=== PATIENT | female | born 1960 | race Two or more races ===

== ENCOUNTER 2017-04-13 09:27 | Day surgery (SDC) | payer OTHER ==
[2017-04-09 08:39] VITALS: BMI 26.1
[~2017-04-13 09:27] MED LIST: DEXAMETHASONE SOD PHOSPHATE 10 MG/ML 1 ML VIAL IV ONE; HYDROmorphone 1 MG/ML 1 ML SYRINGE IVP PRN; LACTATED RINGERS 1,000 ML IV SCH; Pre Op ABX Message 1 EACH MISC MISCELLANE ONE
[2017-04-13] MEDS: ONDANSETRON 4 MG/2 ML VIAL IVP ONE ×2 (10:29→12:10)
[2017-04-13] MEDS ORDERED: LIDOCAINE 1% 20 ML VIAL (10MG/ML) FOR IV START INTRADERMA ONE (10:29)
[2017-04-13] MEDS ORDERED: diphenhydrAMINE 50 MG/ML 1 ML VIAL ONE (11:02)
[2017-04-13] MEDS ORDERED: KETAMINE 10 MG/ML 20 ML VIAL ONE (11:02)
[2017-04-13] MEDS ORDERED: MIDAZOLAM 2 MG/2 ML VIAL ONE (11:02)
[2017-04-13] MEDS ORDERED: PROPOFOL 10 MG/ML 20 ML VIAL IV ONE (11:02)
[2017-04-13] MEDS ORDERED: fentaNYL (PF) 50 MCG/ML 2 ML AMP ONE (11:02)
[2017-04-13] MEDS ORDERED: BUPIVACAINE (PF) 0.25% 30 ML VIAL SQ ONE ×2 (11:13)
[2017-04-13 12:05] VITALS: TEMP 98.1
--- NOTE | 2017-04-13 12:07 | P.OP ---
Date of Procedure: 04/13/17 Preoperative Diagnosis: Right breast mass Postoperative Diagnosis: Right breast mass Procedure(s) Performed: Right breast lumpectomy. Implants: Anesthesia: MAC Surgeon: Po Jean Estimated Blood Loss (ml): 10 Pathology: other (Right breast mass) Condition: stable Disposition: PACU Indications for Procedure: The patient is a 56-year-old white female who of the mass in the medial aspect of the right breast several weeks ago. Mammogram and ultrasound showed suspicious mass 2 o'clock position right breast about 2.1 cm maximum diameter. She declined mammogram. Breast cancer in her mother. Core biopsy Revealed no evidence of malignancy. However excisional biopsy was recommended to rule out for sure to to have no other treatment if this proved to be malignant locally and is planning on alternative treatment out of town. Operative Findings: Vague mass right breast around the 2 o'clock position about 2 cm in diameter. Description of Procedure: With the patient supine the right breast and chest wall were prepped with Betadine and draped local anesthetic Marcaine 0.5% plain was infiltrated into the skin overlying the mass transverse incision was made. Upper and lower skin and subcutaneous flaps were created. Wide excision of the mass was then accomplished using the electrocautery down to the underlying and including the fascia of the pectoral muscles. The margins were marked in the usual fashion. The wound was irrigated. Hemostasis was good and the field was dry. Clips were placed in 4 quadrants. Closure was achieved with interrupted 4-0 Vicryl for the subcutaneous tissues and 4-0 Monocryl and Steri-Strips for the skin pressure dressing was applied. All counts were correct. Blood loss was negligible less than 10 mls. The patient was transported to the recovery room in good and stable condition
[2017-04-13] MEDS ORDERED: traMADol 50 MG TAB PO ONE (13:50)
[2017-04-13 14:05] VITALS: BP 121/71; PULSE 55; RESP 16
== END 2017-04-13 14:27 | disposition home or self-care (01) ==
LOC: OR 09:27
PROVIDERS: ATTEND Surgery
DX: C50.411 Malignant neoplasm of upper-outer quadrant of right female breast (principal); E07.9 Disorder of thyroid, unspecified; Z79.899 Other long term (current) drug therapy
CPT/HCPCS: 19120; 88342; 88307; 88341; J2250; J1200; J1100; J2405; J3010; J1170; J2704

== ENCOUNTER → 2017-08-20 | Outpatient (CLI) | payer OTHER ==
--- NOTE | 2017-08-20 13:23 | CT ---
EXAMINATION TYPE: CT abdomen pelvis w con DATE OF EXAM: 08/20/2017 HISTORY: Newly diagnosed breast cancer, prechemotherapy exam. CT DLP: 933mGycm Automated Exposure Control for Dose Reduction was Utilized. CONTRAST: CT scan of the abdomen and pelvis is performed with IV Contrast, patient injected with 100 mL of Omni paque 300. COMPARISON: None. FINDINGS: LUNG BASES: Dependent atelectasis is present in both bases. There is additional linear scarring and/o r atelectasis centrally in the bilateral bases. LIVER/GB: There is nonspecific 6 mm lesion left hepatic dome lateral segment on axial image 9 too sma ll to further characterize but presumed benign. PANCREAS: No significant abnormality is seen. SPLEEN: No significant abnormality is seen. ADRENALS: No significant abnormality is seen. KIDNEYS: No significant abnormality is seen. BOWEL: Oral contrast reaches level of hepatic flexure. Evaluation of distal colon is felt suboptimal. In addition patient has very little abdominal fat making evaluation suboptimal. There is no suspicio us small or large bowel dilatation. Poorly distended stomach is seen. There is prominence of fecal ma terial throughout the colon particularly transverse and left colon. There is gas filled distention of rectum. UTERUS/ADNEXA: Heterogeneous calcified fibroid uterus is present. There are tubal ligation clips ollie g the superior periphery of the uterus. Some scattered pelvic phleboliths are present inferiorly. LYMPH NODES: No greater than 1cm abdominal or pelvic lymph nodes are appreciated. OSSEOUS STRUCTURES: There is disc space narrowing with vacuum disc phenomenon at lumbosacral junction . There is mild to moderate bilateral disc space narrowing and mild spurring in both hips. OTHER: No significant additional abnormality is seen. IMPRESSION: No suspicious mass or adenopathy is seen to suggest metastatic malignancy.
--- NOTE | 2017-08-20 14:10 | NM ---
EXAMINATION TYPE: NM bone scan whole body DATE OF EXAM: 08/20/2017 COMPARISON: 08/20/2017 CT scan HISTORY: Breast cancer Delayed whole-body scanning was performed following the injection of 25.8 mCi Tc 99m MDP. Images acq uired 3 hours post injection. FINDINGS: There is abnormal uptake involving the lower rib cage anteriorly on the right and left. Abnormal upta ke involving the posterior mid level ribs bilaterally. Abnormal uptake involving the knees, feet, and shoulders is typical of arthritic changes. Abnormal up take involving the mandible likely related to periodontal disease. Abnormal uptake involving the thoracic and lumbar spine appears to be mild intensity likely degenerat fredy. IMPRESSION: 1. Uptake involving the rib cage is nonspecific, dedicated x-ray series recommended. 2. Abnormal uptake involving the vertebral column is likely degenerative given the low intensity of u ptake.
--- NOTE | 2017-08-20 16:20 | ECHOF ---
Referral Reason:C50.2111 Breast ca Z08.818 pre chemo MEASUREMENTS -------- HEIGHT: 162.6 cm WEIGHT: 61.2 kg BP: RVIDd: 2.9 cm (< 3.3) IVSd: 1.1 cm (0.6 - 1.1) LVIDd: 4.3 cm (3.9 - 5.3) LVPWd: 1.0 cm (0.6 - 1.1) IVSs: 1.2 cm LVIDs: 2.6 cm LVPWs: 1.5 cm LAESV Index (A-L): 19.99 ml/m Ao Diam: 3.1 cm (2.0 - 3.7) AV Cusp: 1.6 cm (1.5 - 2.6) LA Diam: 3.7 cm (2.7 - 3.8) MV EXCURSION: 21.475 mm (> 18.000) MV EF SLOPE: 113 mm/s (70 - 150) EPSS: 0.3 cm MV E Juan M: 0.64 m/s MV DecT: 298 ms MV A Juan M: 0.80 m/s MV E/A Ratio: 0.80 RAP: 5.00 mmHg RVSP: 22.76 mmHg FINDINGS -------- Sinus rhythm. This was a technically good study. The left ventricular size is normal. Left ventricular wall thickness is normal. Overall left ventricular systolic function is normal with, an EF between 55 - 60 %. The right ventricle is normal in size and function. Normal LA size by volume 22+/-6 ml/m2. The right atrium is normal in size. The aortic valve is trileaflet, and appears structurally normal. No aortic stenosis or regurgitation. The mitral valve leaflets are mildly thickened. There is trace to mild mitral regurgitation. There is mildly calcified chordae. Trace tricuspid regurgitation present. Right ventricular systolic pressure is normal at < 35 mmHg. There is no evidence of pulmonary hypertension. The pulmonic valve is normal. The aortic root size is normal. Normal inferior vena cava with normal inspiratory collapse consistent with estimated right atrial pressure of 5 mmHg. The pericardium is normal. There is no pericardial effusion. Echolucent area of unclear significance - suggest CXR or CT chest CONCLUSIONS -------- 1. Sinus rhythm. 2. Trace tricuspid regurgitation present. 3. Right ventricular systolic pressure is normal at < 35 mmHg. 4. There is no evidence of pulmonary hypertension. 5. The aortic root size is normal. 6. There is no pericardial effusion. 7. This was a technically good study. 8. The left ventricular size is normal. 9. Overall left ventricular systolic function is normal with, an EF between 55 - 60 %. 10. Normal LA size by volume 22+/-6 ml/m2. 11. The aortic valve is trileaflet, and appears structurally normal. No aortic stenosis or regurgitation. 12. The mitral valve leaflets are mildly thickened. 13. There is trace to mild mitral regurgitation. 14. There is mildly calcified chordae. TOBACCO CLOTH RECLAIMER: Mauricio Cook RDCS
== END ==
LOC: RADNMMAIN 10:03
PROVIDERS: ATTEND Internal Medicine Hematology & Oncology
DX: C50.211 Malignant neoplasm of upper-inner quadrant of right female breast (principal); R93.8 Abnormal findings on diagnostic imaging of other specified body structures; I08.1 Rheumatic disorders of both mitral and tricuspid valves
CPT/HCPCS: 93306; 74177; 78306; A9503; Q9967

== ENCOUNTER → 2017-08-24 | Outpatient (CLI) | payer OTHER ==
--- NOTE | 2017-08-24 14:52 | USB ---
Reason for exam: additional evaluation requested from prior study. History: Patient has history of breast cancer at age 56. Family history of breast cancer in mother at age 69. Physical Findings: Nurse did not find any significant physical abnormalities on exam. US Breast LT Left breast ultrasound includes all four quadrants, the retroareolar region and axilla. Finding demonstrates a 3 x 2 x 3mm oval, cystic lesion at 6 o'clock, a 7 x 4 x 9mm oval, solid, hyperechoic lesion at 10 o'clock questionable lipoma, a 7 x 7mm oval, solid, hyperechoic lesion at palpable at the axilla and a 2mm oval lesion too small to characterize at pain/palpable at the axilla. These results were verbally communicated with the patient and result sheet given to the patient on 08/24/17. ASSESSMENT: Probably benign, BI-RAD 3 RECOMMENDATION: Follow-up mammogram of the bilateral breasts. (now patient due but refuses) Ultrasound of the left breast in 6 months. MATTY
== END | disposition home or self-care (01) ==
LOC: RADUSWWP 13:33
PROVIDERS: ATTEND Internal Medicine Hematology & Oncology
DX: N64.4 Mastodynia (principal)

== ENCOUNTER 2017-09-25 08:45 | Inpatient (IN) | payer OTHER ==
[2017-09-25] MEDS ORDERED: SODIUM CHLORIDE 0.9% 1,000 ML IV STA (08:58)
--- NOTE | 2017-09-25 09:30 | ED ---
General Adult HPI <Chaz Webber - Last Filed: 09/25/17 10:58> - General Source: patient, RN notes reviewed Mode of arrival: wheelchair Limitations: no limitations <LexaSaul - Last Filed: 09/25/17 11:07> - General Chief complaint: Fever Stated complaint: Fever, cancer pt Time Seen by Provider: 09/25/17 08:53 - History of Present Illness Initial comments: Patient's a 57-year-old female significant past medical history for breast cancer, who presents emergency room today with a chief complaint of low-grade fever that began this morning. Patient admits to cough congestion over the last week. She states last chemo was approximately a week ago. States she called her oncologist in on-call Dr. Fletcher advised to come here to the emergency room to be checked. Patient denies any other complaints or symptoms at this time. Patient denies any recent fever, chills, shortness of breath, chest pain, back pain, abdominal pain, nausea or vomiting, numbness or tingling, dysuria or hematuria, constipation or diarrhea, headaches or visual changes, or any other complaints. (Saul Lindquist) - Related Data Home Medications Medication Instructions Recorded Confirmed Bacopa 1 tab PO DAILY 04/09/17 04/13/17 Cholecalciferol (Vitamin D3) 8,000 unit PO DAILY 04/09/17 04/13/17 [Vitamin D3] Ginkgo Biloba 500 mg PO DAILY 04/09/17 04/13/17 Multivit with Calcium,Iron,Min 1 each PO DAILY 04/09/17 04/13/17 [Women's Multivitamin] Thyroid,Pork [Nature-Throid] 32.5 mg PO DAILY 04/09/17 04/13/17 Turmeric Root Extract [Turmeric] 500 mg PO DAILY 04/09/17 04/13/17 Ubidecarenone [Co Q-10] 100 mg PO DAILY 04/09/17 04/13/17 Previous Rx's Medication Instructions Recorded traMADol HCl [Ultram] 50 mg PO Q4H PRN #20 tab 04/13/17 Allergies Allergy/AdvReac Type Severity Reaction Status Date / Time sulfamethoxazole Allergy Unknown Verified 09/25/17 08:52 trimethoprim Allergy Unknown Verified 09/25/17 08:52 Review of Systems ROS Other: All systems not noted in ROS Statement are negative. <Chaz Webber - Last Filed: 09/25/17 10:58> ROS Other: All systems not noted in ROS Statement are negative. <Saul Lindquist Last Filed: 09/25/17 11:07> ROS Statement: Those systems with pertinent positive or pertinent negative responses have been documented in the HPI. Past Medical History Past Medical History: Cancer, Thyroid Disorder Additional Past Medical History / Comment(s): breast CA History of Any Multi-Drug Resistant Organisms: None Reported Past Surgical History: Breast Surgery, Section Additional Past Surgical History / Comment(s): uterine fibroid embolization, colonoscopies, right mastectomy Past Anesthesia/Blood Transfusion Reactions: No Reported Reaction Past Psychological History: No Psychological Hx Reported Smoking Status: Never smoker Past Alcohol Use History: None Reported Past Drug Use History: None Reported - Past Family History Father Family Medical History: Cancer, Pulmonary Embolus Additional Family Medical History / Comment(s): lung Mother Family Medical History: Cancer Additional Family Medical History / Comment(s): breast <Saul Lindquist - Last Filed: 09/25/17 11:07> General Exam <Chaz Webber - Last Filed: 09/25/17 10:58> Limitations: no limitations <Saul Lindquist - Last Filed: 09/25/17 11:07> - General Exam Comments Initial Comments: General: The patient is awake and alert, in no distress, and does not appear acutely ill. Eye: Pupils are equal, round and reactive to light, extra-ocular movements are intact. No nystagmus. There is normal conjunctiva bilaterally. No signs of icterus. Ears, nose, mouth and throat: There are moist mucous membranes and no oral lesions. Neck: The neck is supple, there is no tenderness or JVD. Cardiovascular: There is a regular rate and rhythm. No murmur, rub or gallop is appreciated. Respiratory: Lungs are clear to auscultation, respirations are non-labored, breath sounds are equal. No wheezes, stridor, rales, or rhonchi. Gastrointestinal: Soft, non-distended, non-tender abdomen without masses or organomegaly noted. There is no rebound or guarding present. No CVA tenderness. Bowel sounds are unremarkable. Musculoskeletal: Normal ROM, no tenderness. Strength 5/5. Sensation intact. Pulses equal bilaterally 2+. Neurological: A&O x 3. CN II-XII intact, There are no obvious motor or sensory deficits. Coordination appears grossly intact. Speech is normal. Skin: Skin is warm and dry and no rashes or lesions are noted. Psychiatric: Cooperative, appropriate mood & affect, normal judgment. (Saul Lindquist) Course <Chaz Webber - Last Filed: 09/25/17 10:58> <Saul Lindquist - Last Filed: 09/25/17 11:07> Vital Signs 09/25/17 09/25/17 08:47 11:01 Temperature 99.8 F H Pulse Rate 105 H 89 Respiratory 18 18 Rate Blood Pressure 119/61 105/58 O2 Sat by Pulse 95 94 L Oximetry - Reevaluation(s) Reevaluation #1: 09/25/17 10:58 I did personally do a [id number] evaluation the patient did discuss the findings with her and her daughter. Patient's lungs are clear there was atelectasis possibly seen on the x-rays here no abnormal sounds at this level patient does demonstrate good aeration. I did discuss the case with her with Dr. Fletcher and with Dr. De La Cruz. Patient will be admitted for IV antibiotics specifically cefepime. Neutropenia with fever. (Chaz Webber) Medical Decision Making - Lab Data Result diagrams: 09/25/17 09:15 09/25/17 09:15 <Chaz Webber - Last Filed: 09/25/17 10:58> - Lab Data Result diagrams: 09/25/17 09:15 09/25/17 09:15 <Saul Lindquist - Last Filed: 09/25/17 11:07> - Lab Data Lab Results 09/25/17 09/25/17 09/25/17 Range/Units 09:15 09:15 09:15 WBC 0.8 L* (3.8-10.6) k/uL RBC 3.11 L (3.80-5.40) m/uL Hgb 10.3 L (11.4-16.0) gm/dL Hct 30.3 L (34.0-46.0) % MCV 97.4 (80.0-100.0) fL MCH 33.2 (25.0-35.0) pg MCHC 34.0 (31.0-37.0) g/dL RDW 13.0 (11.5-15.5) % Plt Count 133 L (150-450) k/uL Differential Comment Manual Slide Review Performed Poikilocytosis (manual Present Sodium 135 L (137-145) mmol/L Potassium 3.9 (3.5-5.1) mmol/L Chloride 102 (98-107) mmol/L Carbon Dioxide 25 (22-30) mmol/L Anion Gap 8 mmol/L BUN 11 (7-17) mg/dL Creatinine 0.52 (0.52-1.04) mg/dL Est GFR (MDRD) Af Amer >60 (>60 ml/min/1.73 sqM) Est GFR (MDRD) Non-Af >60 (>60 ml/min/1.73 sqM) Glucose 116 H (74-99) mg/dL Plasma Lactic Acid Chris 1.0 (0.7-2.0) mmol/L Calcium 9.0 (8.4-10.2) mg/dL Total Bilirubin 0.5 (0.2-1.3) mg/dL AST 15 (14-36) U/L ALT 36 (9-52) U/L Alkaline Phosphatase 65 (38-126) U/L Total Protein 6.2 L (6.3-8.2) g/dL Albumin 3.9 (3.5-5.0) g/dL Urine Color Urine Appearance (Clear) Urine pH (5.0-8.0) Ur Specific [place] (1.001-1.035) Urine Protein (Negative) Urine Glucose (UA) (Negative) Urine Ketones (Negative) Urine Blood (Negative) Urine Nitrite (Negative) Urine Bilirubin (Negative) Urine Urobilinogen (<2.0) mg/dL Ur Leukocyte Esterase (Negative) 09/25/17 Range/Units 09:15 WBC (3.8-10.6) k/uL RBC (3.80-5.40) m/uL Hgb (11.4-16.0) gm/dL Hct (34.0-46.0) % MCV (80.0-100.0) fL MCH (25.0-35.0) pg MCHC (31.0-37.0) g/dL RDW (11.5-15.5) % Plt Count (150-450) k/uL Differential Comment Manual Slide Review Poikilocytosis (manual Sodium (137-145) mmol/L Potassium (3.5-5.1) mmol/L Chloride (98-107) mmol/L Carbon Dioxide (22-30) mmol/L Anion Gap mmol/L BUN (7-17) mg/dL Creatinine (0.52-1.04) mg/dL Est GFR (MDRD) Af Amer (>60 ml/min/1.73 sqM) Est GFR (MDRD) Non-Af (>60 ml/min/1.73 sqM) Glucose (74-99) mg/dL Plasma Lactic Acid Chris (0.7-2.0) mmol/L Calcium (8.4-10.2) mg/dL Total Bilirubin (0.2-1.3) mg/dL AST (14-36) U/L ALT (9-52) U/L Alkaline Phosphatase (38-126) U/L Total Protein (6.3-8.2) g/dL Albumin (3.5-5.0) g/dL Urine Color Light Yellow Urine Appearance Clear (Clear) Urine pH 6.5 (5.0-8.0) Ur Specific [place] 1.002 (1.001-1.035) Urine Protein Negative (Negative) Urine Glucose (UA) Negative (Negative) Urine Ketones Negative (Negative) Urine Blood Negative (Negative) Urine Nitrite Negative (Negative) Urine Bilirubin Negative (Negative) Urine Urobilinogen <2.0 (<2.0) mg/dL Ur Leukocyte Esterase Negative (Negative) Disposition <Chaz Webber - Last Filed: 09/25/17 10:58> Time of Disposition: 11:07 <Saul Lindquist - Last Filed: 09/25/17 11:07> Clinical Impression: Neutropenic fever Disposition: ADMITTED IP TO THIS HOSP Condition: Good Referrals: Jaison Fuller MD [Primary Care Provider] - 1-2 days
[2017-09-25 09:51] LABS: Appearance,Urine Clear (Clear); Bilirubin,Urine Negative (Negative); Glucose,Urine (UA) Negative (Negative); Ketones,Urine Negative (Negative); Leukocyte Esterase,Urine Negative (Negative); Nitrite,Urine Negative (Negative); PH, Urine 6.5 (5.0-8.0); Protein,Urine Negative (Negative); Specific Gravity,Urine 1.002 (1.001-1.035); UA Billing (MACRO vs. MICRO) CHEM; Urobilinogen,Urine <2.0 mg/dL (<2.0)
--- NOTE | 2017-09-25 09:58 | XR ---
EXAMINATION TYPE: XR chest 2V DATE OF EXAM: 09/25/2017 HISTORY: cough. REFERENCE: Previous study dated 05/18/2011. FINDINGS: There is a MediPort in place via a left subclavian approach. Its tip is in the superior micah a cava. There is minimal atelectasis or scarring at the left lung base. Pleural spaces are clear. Heart size is normal. There is absence of the right breast shadow. IMPRESSION: 1. POSTSURGICAL CHANGE. 2. SCARRING VERSUS ATELECTASIS, LEFT LUNG BASE.
[2017-09-25 09:59] LABS: CH 34.6; CHCM 35.6; HCT 30.3 % (34.0-46.0); HDW 2.96; HGB 10.3 gm/dL (11.4-16.0); Immature Gran Flag Marked; MCH 33.2 pg (25.0-35.0); MCV 97.4 fL (80.0-100.0); Mean Platelet Volume 7.8; RBC 3.11 m/uL (3.80-5.40); WBC (Perox) 0.82
[2017-09-25 10:02] LABS: WBC 0.8 k/uL (3.8-10.6)
[2017-09-25 10:03] LABS: ALT 36 U/L (9-52); AST 15 U/L (14-36); Alkaline Phosphatase 65 U/L (38-126); Anion Gap 8 mmol/L; Blood Urea Nitrogen 11 mg/dL (7-17); Carbon Dioxide 25 mmol/L (22-30); Chloride 102 mmol/L (98-107); Glucose 116 mg/dL (74-99); Non-African American GFR(MDRD) >60 (>60 ml/min/1.73 sqM); Potassium 3.9 mmol/L (3.5-5.1); Sodium 135 mmol/L (137-145); Total Bilirubin 0.5 mg/dL (0.2-1.3); Total Protein 6.2 g/dL (6.3-8.2)
[2017-09-25 10:10] LABS: Add Differential Manual Differential
[2017-09-25 10:11] LABS: Manual Review Performed
[2017-09-25] MEDS ORDERED: NALOXONE 0.4 MG/ML 1 ML VIAL IV PRN (11:07)
[2017-09-25] MEDS ORDERED: IBUPROFEN 400 MG TAB PO PRN (11:07)
[2017-09-25] MEDS ORDERED: ACETAMINOPHEN TAB 325 MG TAB PO PRN (11:07)
[2017-09-25] MEDS ORDERED: ONDANSETRON 4 MG/2 ML VIAL IVP PRN (11:07)
[2017-09-25] MEDS ORDERED: HYDROmorphone 1 MG/ML 1 ML SYRINGE IVP PRN (11:07)
[2017-09-25] MEDS ORDERED: CEFEPIME 2 GM in SODIUM CHLORIDE 0.9% 50 ML IVPB STA (11:09)
[2017-09-25 12:35] VITALS: BMI 23.6
--- NOTE | 2017-09-25 17:26 | HP ---
HISTORY AND PHYSICAL I am covering for Dr. Fuller. DATE OF ADMISSION: 09/25/2017. CHIEF COMPLAINTS: Fever. HISTORY OF PRESENT ILLNESS: This 57-year-old woman with a past history of breast cancer, thyroid cancer, hypothyroidism, Caesarean section, uterine embolization being followed by Dr. Fuller in the outpatient setting was receiving chemotherapy. The patient had a low-grade fever beginning this morning and a fever 100.4, and the patient because Dr. Fletcher contacted the patient was brought to the emergency room and admitted to the hospital for further evaluation and evaluation. The patient had pancytopenia with WBC 0.89. Neutropenic fever was suspected and the patient is admitted for further evaluation and treatment. There is no history of any chest pain, palpitation. Occasional cough is reported without much sputum. No audible wheeze or rhonchi heard. PAST MEDICAL HISTORY: History of breast cancer, hypothyroidism, history of Caesarean infection, history of breast surgery. MEDICATIONS: Prior to admission: 1. Vitamin B complex 1 p.o. daily. 2. Thyroid 32.5 mg p.o. daily. 3. Men's vitamin 1 p.o. daily. 4. Vitamin C 500 mg p.o. daily. 5. Co-Enzyme Q 100 mg p.o. daily. 6. Turmeric 500 mg. 7. Vitamin D3 8000 daily. ALLERGIES: SULFAMETHOXAZOLE TRIMETHOPRIM. FAMILY HISTORY: History of cancer, pulmonary embolism, lung cancer. SOCIAL HISTORY: No history of smoking. No history of alcohol. REVIEW OF SYSTEMS: ENT: No diminished hearing or vision. Cardio system: No angina or palpitations. RESPIRATORY: As mentioned earlier. GI: No nausea or vomiting. no dysuria. Central nervous system: No numbness or weakness. ALLERGY: No asthma or hay fever. MUSCULOSKELETAL: As mentioned earlier. HEMATOLOGY/ONCOLOGY: As mentioned earlier. Endocrine as mentioned earlier. Constitutional: As mentioned earlier. Rheumatology: Negative. Dermatology: Negative. Psychiatric: As mentioned earlier. EXAMINATION: Alert and oriented times two. Pulse is 105. Blood pressure 190/96, respiration 18, temperature 99.8, pulse ox 94% on room air. HEENT conjunctivae pale. Oral mucosa moist. Neck is no jugular venous distention. No carotid bruit. No lymph nodes enlargement. Cardiovascular: S1-S2 muffled. RESPIRATORY: Breath sounds diminished in the bases. No rhonchi and no crackles. ABDOMEN: Soft, nontender. No mass palpable. No hepatosplenomegaly. Legs no edema and no swelling. NERVOUS SYSTEM: Higher functions as mentioned earlier. Moves all four limbs. No focal motor or sensory deficits. Lymphatics: No lymph nodes palpable in the neck, axillae or groin. Skin no ulcer, rash or bleeding. LAB STUDIES: WBC 0.8, hemoglobin 10.2, platelets 113. Otherwise other labs the chest x-ray that was personally reviewed by me showed postsurgical scarring, left lung base. ASSESSMENT: 1. Neutropenic fever for evaluation. 2. Mild pancytopenia, neutropenia secondary to chemotherapy. 3. Cancer. 4. 5. Atelectasis left lung base. 6. Hypothyroidism. 7. History of breast surgery. 8. History of section. 9. History of uterine fibroid ablations. RECOMMENDATIONS AND DISCUSSION: This 57-year-old woman who presented with multiple complex medical issues, we will monitor the patient closely, continue the current management and continue treatment. Otherwise at this time, I would recommend resume the home medications including vitamin. Otherwise recommend broad-spectrum IV antibiotics. Also obtain cultures, blood and urine, daily labs were also ordered. Otherwise, prognosis guarded because of multiple complex medical issues. Discussed with the patient who understands and agrees. Further recommendations to follow. See orders for further details. We will closely follow with Dr. Fletcher. KELLY / GAYE: [id number] / MATTY
[2017-09-25] MEDS: CEFEPIME 2 GM in SODIUM CHLORIDE 0.9% 50 ML IVPB SCH (19:51)
[2017-09-26] MEDS: CEFEPIME 2 GM in SODIUM CHLORIDE 0.9% 50 ML IVPB SCH ×3 (04:19→19:37)
[2017-09-26 07:17] LABS: CH 34.5; HCT 32.2 % (34.0-46.0); HDW 3.06; HGB 10.8 gm/dL (11.4-16.0); Immature Gran Flag Marked; MCH 33.2 pg (25.0-35.0); MCHC 33.4 g/dL (31.0-37.0); MCV 99.2 fL (80.0-100.0); Mean Platelet Volume 7.6; RBC 3.24 m/uL (3.80-5.40); RDW 13.5 % (11.5-15.5); WBC 2.1 k/uL (3.8-10.6); WBC (Perox) 2.24
[2017-09-26 07:34] LABS: ALT 34 U/L (9-52); AST 16 U/L (14-36); Alkaline Phosphatase 65 U/L (38-126); Anion Gap 10 mmol/L; Blood Urea Nitrogen 12 mg/dL (7-17); Calcium 9.2 mg/dL (8.4-10.2); Carbon Dioxide 24 mmol/L (22-30); Chloride 105 mmol/L (98-107); Glucose 92 mg/dL (74-99); Non-African American GFR(MDRD) >60 (>60 ml/min/1.73 sqM); Potassium 3.9 mmol/L (3.5-5.1); Sodium 139 mmol/L (137-145); Total Bilirubin 0.6 mg/dL (0.2-1.3); Total Protein 6.5 g/dL (6.3-8.2)
[2017-09-26 08:50] LABS: Add Differential Manual Differential
[2017-09-26 08:56] LABS: Band Neutrophils % 11 %; Manual Review Performed; Metamyelocytes % 1 %; Nucleated Red Blood Cells 0 /100 WBC (0-0); Total Cells Counted 200
--- NOTE | 2017-09-26 09:19 | P.CONS ---
History of Present Illness - Reason for Consult Consult date: 09/26/17 Febrile neutropenia. Breast cancer on chemotherapy - History of Present Illness The patient is a 47-year-old lady, well known to our service. She had initially presented in 03/31, with complains of a palpable mass in the right breast. She had had a mammogram and ultrasound, which were suspicious. She initially had a needle biopsy that was benign. However the finding was still felt to be suspicious due to which she underwent an excisional biopsy in late . 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 Margins were positive. The tumor was triple negative. The patient was then seen in the office. As the tumor was more than 2 cm in size, and triple negative, chemotherapy was recommended with recommendations for reexcision subsequently. The patient was reluctant for chemotherapy and instead opted for alternative treatments. She subsequently changed her mind, and saw Dr. Singh in 08/01. Similar recommendations were given, and the patient was now we will. She underwent restaging with CT scans and bone scan that showed no obvious evidence of metastatic disease. She was therefore started on dose dense Adriamycin and Cytoxan and is status post 2 cycles. Most recent chemotherapy was one week ago. She did receive Neulasta the day after chemo. The patient had called the answering service yesterday, complaining of a temperature of 100.5. She did not really have any other significant symptoms. She was sent in to the emergency room where white count was found to be low at 800. The case was discussed with the ER physician, and the patient was subsequently admitted. Review of Systems Constitutional: Reports fatigue, Reports fever Eyes: denies blurred vision, denies pain Ears: deny: decreased hearing, ear discharge, earache, tinnitus Ears, nose, mouth and throat: Denies headache, Denies sore throat Breasts: right: as per HPI Cardiovascular: Denies chest pain, Denies shortness of breath Respiratory: Denies cough Gastrointestinal: Denies abdominal pain, Denies diarrhea, Denies nausea, Denies vomiting Genitourinary: Denies dysuria, Denies hematuria Menstruation: Reports postmenopausal Musculoskeletal: Denies myalgias Integumentary: Denies pruritus, Denies rash Neurological: Denies numbness, Denies weakness Psychiatric: Denies anxiety, Denies depression Endocrine: Denies fatigue, Denies weight change Hematologic/Lymphatic: Reports as per HPI Past Medical History Past Medical History: Cancer, Thyroid Disorder Additional Past Medical History / Comment(s): breast CA, hypothyroid History of Any Multi-Drug Resistant Organisms: None Reported Past Surgical History: Breast Surgery, Section Additional Past Surgical History / Comment(s): uterine fibroid embolization, colonoscopies, right mastectomy, appendectomy, tonsillectomy Past Anesthesia/Blood Transfusion Reactions: No Reported Reaction Past Psychological History: No Psychological Hx Reported Smoking Status: Never smoker Past Alcohol Use History: None Reported Past Drug Use History: None Reported - Past Family History Father Family Medical History: Cancer, Pulmonary Embolus Additional Family Medical History / Comment(s): lung Mother Family Medical History: Cancer Additional Family Medical History / Comment(s): breast Medications and Allergies Home Medications Medication Instructions Recorded Confirmed Type Cholecalciferol (Vitamin D3) 8,000 unit PO DAILY 04/09/17 09/25/17 History [Vitamin D3] Multivit with Calcium,Iron,Min 1 tab PO DAILY 04/09/17 09/25/17 History [Women's Multivitamin] Thyroid,Pork [Nature-Throid] 32.5 mg PO DAILY 04/09/17 09/25/17 History Turmeric Root Extract [Turmeric] 500 mg PO DAILY 04/09/17 09/25/17 History Ubidecarenone [Co Q-10] 100 mg PO DAILY 04/09/17 09/25/17 History Ascorbic Acid [Vitamin C] 500 mg PO DAILY 09/25/17 09/25/17 History Vitamin B Complex 1 cap PO DAILY 09/25/17 09/25/17 History Allergies Allergy/AdvReac Type Severity Reaction Status Date / Time sulfamethoxazole Allergy Unknown Verified 09/25/17 11:54 trimethoprim Allergy Unknown Verified 09/25/17 11:54 Physical Exam Vitals: Vital Signs Temp Pulse Pulse Resp BP BP Pulse Ox 09/25/17 22:40 98.2 F 95 16 124/64 95 09/25/17 17:39 98.6 F 09/25/17 15:00 98.6 F 90 18 109/61 94 L 09/25/17 12:28 100.2 F H 102 H 18 118/68 94 L 09/25/17 11:52 98.8 F 85 18 107/58 99 09/25/17 11:01 89 18 105/58 94 L Intake and Output 09/25/17 09/26/17 09/26/17 22:59 06:59 14:59 Intake Total 590 Balance 590 Intake: Oral 590 Other: # Voids 1 2 - Constitutional General appearance: no acute distress - EENT Eyes: EOMI, PERRLA ENT: hearing grossly normal, normal oropharynx - Neck Neck: no lymphadenopathy Thyroid: bilateral: normal size - Respiratory Respiratory: bilateral: CTA - Cardiovascular Rhythm: regular Heart sounds: normal: S1, S2 - Gastrointestinal General gastrointestinal: normal bowel sounds, soft - Integumentary Integumentary: normal - Neurologic Neurologic: CNII-XII intact - Musculoskeletal Musculoskeletal: strength equal bilaterally - Psychiatric Psychiatric: A&O x's 3, appropriate affect Results CBC & Chem 7: 09/26/17 06:50 09/26/17 06:50 Labs: Abnormal Lab Results - Last 24 Hours (Table) 09/25/17 09/25/17 09/26/17 Range/Units 09:15 09:15 06:50 WBC 0.8 L* 2.1 L (3.8-10.6) k/uL RBC 3.11 L 3.24 L (3.80-5.40) m/uL Hgb 10.3 L 10.8 L (11.4-16.0) gm/dL Hct 30.3 L 32.2 L (34.0-46.0) % Plt Count 133 L (150-450) k/uL Neutrophils # (Manual) 0.40 L (1.3-7.7) k/uL Lymphocytes # (Manual) 0.65 L (1.0-4.8) k/uL Metamyelocytes # (Man) 0.02 H (0) k/uL Sodium 135 L (137-145) mmol/L Glucose 116 H (74-99) mg/dL Total Protein 6.2 L (6.3-8.2) g/dL Microbiology - Last 24 Hours (Table) 09/25/17 09:15 Urine Culture - Preliminary Urine,Voided Chest x-ray: report reviewed Assessment and Plan (1) Neutropenic fever Narrative/Plan: The patient had called with a temperature of 100.5 at home. She was sent in, as CBC in the office 2 days ago had shown a white count of 600. In the ER count was still 800 due to which she was admitted. As noted, the patient did not have any localizing signs of infection. White count today is back up to 2.1. He has not had a fever since admission. Cultures are negative so far. Her fever may be due to impending white count recovery. Continue antibiotics. If WBC is in a safe range tomorrow, and cultures are negative, she can likely be discharged on oral antibiotics. Current Visit: Yes Status: Acute Code(s): D70.9 - NEUTROPENIA, UNSPECIFIED; R50.81 - FEVER PRESENTING WITH CONDITIONS CLASSIFIED ELSEWHERE SNOMED Code(s) : 389648605 (2) Breast cancer Narrative/Plan: She is scheduled for her next chemotherapy on 10/01/17. At this time, it is anticipated that she'll be able to stay on schedule Current Visit: Yes Status: Acute Code(s): C50.919 - MALIGNANT NEOPLASM OF UNSP SITE OF UNSPECIFIED FEMALE BREAST SNOMED Code(s): 148803711 (3) Pancytopenia due to antineoplastic chemotherapy Narrative/Plan: Other than the WBC, this is overall quite mild. WBC is recovering as noted. The patient did receive Neulasta week ago. Platelet count is back in the normal range. Hemoglobin is quite safe, between 10-11. Current Visit: Yes Status: Acute Code(s): D61.810 - ANTINEOPLASTIC CHEMOTHERAPY INDUCED PANCYTOPENIA; T45.1X5A - ADVERSE EFFECT OF ANTINEOPLASTIC AND IMMUNOSUP DRUGS, INIT SNOMED Code(s): 286826387066627
[2017-09-26] MEDS: guaiFENesin 600 MG TABLET.ER PO SCH ×2 (11:27→19:38)
[2017-09-26] MEDS ORDERED: CHOLECALCIFEROL 1,000 UNIT TAB PO SCH (12:00)
[2017-09-26] MEDS ORDERED: ASCORBIC ACID 500 MG TAB PO SCH (12:00)
[2017-09-26] MEDS ORDERED: B COMPLEX-VIT C-VIT E-ZINC 1 EACH TAB PO SCH (12:00)
[2017-09-26] MEDS ORDERED: MULTIVITAMINS, THERA 1 EACH TAB PO SCH (12:00)
[2017-09-26] MEDS: THYROID PORK 32.5 MG PO SCH (12:36)
--- NOTE | 2017-09-26 17:51 | PN ---
PROGRESS NOTE DATE OF SERVICE: 09/26/2017 I am covering for Dr. Fuller. This 57-year-old woman is admitted with neutropenic fever and sepsis is being closely monitored. Patient on IV antibiotics and white count is improved to 2.1 from 0.8. No chest pain. No palpitations. Occasional cough is reported without any sputum. EXAM: Alert and oriented x3. Pulse is 88, blood pressure 93/56, respiration 18, temperature is 98.7, pulse ox 94% on room air. HEENT is conjunctivae are normal. Neck no jugular venous distention. Cardiovascular systems: S1, S2 muffled. Respiratory: Breath sounds diminished at the bases. No rhonchi and no crackles. Abdomen is soft, nontender. Legs are no edema. No swelling. Central nervous system: No focal deficits. LABS: WBC 2.2, hemoglobin 10.8. ASSESSMENT: 1. Neutropenic fever for evaluation. 2. Mild pancytopenia and neutropenia secondary to chemotherapy. 3. History of breast cancer. 4. Atelectasis of the left lung base. 5. Hypothyroidism. 6. History of breast cancer. 7. Possible acute bronchitis. 8. History of section. 9. History of uterine fibroid ablations. RECOMMENDATIONS AND DISCUSSION: Recommend to continue current management, continue symptomatic treatment, continue current medications, and repeat labs. Otherwise continue the antibiotics and Dr. Fletcher input appreciated and Dr. Fuller will follow. Dr. Fletcher is planning for discharge maybe tomorrow. MMODL / IJN: [id number] /
[2017-09-26 22:15] VITALS: RESP 16
[2017-09-27] MEDS: CEFEPIME 2 GM in SODIUM CHLORIDE 0.9% 50 ML IVPB SCH (04:01)
[2017-09-27] MEDS: THYROID PORK 32.5 MG PO SCH (05:55)
[2017-09-27 07:45] LABS: Aty Lym Flag Slight; CH 34.2; CHCM 34.2; HCT 30.9 % (34.0-46.0); HDW 3.24; HGB 10.1 gm/dL (11.4-16.0); Immature Gran Flag Marked; MCHC 32.8 g/dL (31.0-37.0); MCV 100.6 fL (80.0-100.0); Macrocytosis Slight; Mean Platelet Volume 7.8; RBC 3.07 m/uL (3.80-5.40); RDW 13.9 % (11.5-15.5); WBC (Perox) 3.13
[2017-09-27 07:52] LABS: Anion Gap 6 mmol/L; Blood Urea Nitrogen 13 mg/dL (7-17); Calcium 8.8 mg/dL (8.4-10.2); Carbon Dioxide 25 mmol/L (22-30); Chloride 107 mmol/L (98-107); Glucose 89 mg/dL (74-99); Non-African American GFR(MDRD) >60 (>60 ml/min/1.73 sqM); Potassium 3.8 mmol/L (3.5-5.1); Sodium 138 mmol/L (137-145)
--- NOTE | 2017-09-27 07:59 | P.DS ---
Providers Date of admission: 09/25/17 10:59 Expected date of discharge: 09/27/17 Attending physician: Jaison Fuller Consults: 09/25/17 11:07 Consult Physician Stat Consulting Provider: Clinton Fletcher Consult Reason/Comments: Neutropenic fever Do you want consulting provider notified?: Yes Primary care physician: Jaison Fuller - Discharge Diagnosis(es) (1) Breast cancer Current Visit: Yes Status: Acute (2) Neutropenic fever Current Visit: Yes Status: Acute (3) Pancytopenia due to antineoplastic chemotherapy Current Visit: Yes Status: Acute Patient Condition at Discharge: Good Plan - Discharge Summary Discharge Rx Participant: Yes New Discharge Prescriptions: New Amoxicillin/Potassium Clav [Augmentin 500-125 Tablet] 1 tab PO Q12HR #10 tab No Action Thyroid,Pork [Nature-Throid] 32.5 mg PO DAILY Ubidecarenone [Co Q-10] 100 mg PO DAILY Turmeric Root Extract [Turmeric] 500 mg PO DAILY Multivit with Calcium,Iron,Min [Women's Multivitamin] 1 tab PO DAILY Cholecalciferol (Vitamin D3) [Vitamin D3] 8,000 unit PO DAILY Ascorbic Acid [Vitamin C] 500 mg PO DAILY Vitamin B Complex 1 cap PO DAILY Discharge Medication List Cholecalciferol (Vitamin D3) [Vitamin D3] 8,000 unit PO DAILY 04/09/17 [History] Multivit with Calcium,Iron,Min [Women's Multivitamin] 1 tab PO DAILY 04/09/17 [ History] Thyroid,Pork [Nature-Throid] 32.5 mg PO DAILY 04/09/17 [History] Turmeric Root Extract [Turmeric] 500 mg PO DAILY 04/09/17 [History] Ubidecarenone [Co Q-10] 100 mg PO DAILY 04/09/17 [History] Ascorbic Acid [Vitamin C] 500 mg PO DAILY 09/25/17 [History] Vitamin B Complex 1 cap PO DAILY 09/25/17 [History] Amoxicillin/Potassium Clav [Augmentin 500-125 Tablet] 1 tab PO Q12HR #10 tab [Rx] Follow up Appointment(s)/Referral(s): Jaison Fuller MD [Primary Care Provider] - 1-2 days
[2017-09-27 08:01] VITALS: BP 96/51; PULSE 71; TEMP 97.9
[2017-09-27] MEDS: guaiFENesin 600 MG TABLET.ER PO SCH (08:15)
[2017-09-27 08:55] LABS: Add Differential Manual Differential
[2017-09-27 08:59] LABS: Nucleated Red Blood Cells 0 /100 WBC (0-0)
[2017-09-27 09:02] LABS: Band Neutrophils % 11 %; Manual Review Performed; Polychromasia Present; Total Cells Counted 200
== END 2017-09-27 10:00 | disposition home or self-care (01) | DRG 808 ==
LOC: EC 08:45 → 5ONC 10:59
PROVIDERS: ADMIT Family Medicine; ATTEND Family Medicine
DX: D61.810 Antineoplastic chemotherapy induced pancytopenia (principal); A41.9 Sepsis, unspecified organism; J98.11 Atelectasis; C50.919 Malignant neoplasm of unspecified site of unspecified female breast; E03.9 Hypothyroidism, unspecified; T45.1X5A Adverse effect of antineoplastic and immunosuppressive drugs, initial encounter; Z80.1 Family history of malignant neoplasm of trachea, bronchus and lung; Z85.850 Personal history of malignant neoplasm of thyroid; R50.81 Fever presenting with conditions classified elsewhere; Z88.2 Allergy status to sulfonamides
CPT/HCPCS: 36415; 71020; 80048; 80053; 81003; 83605; 85025; 87040; 87086; 96365; 99284

== ENCOUNTER → 2017-11-25 | Outpatient (CLI) | payer BC ==
[2017-11-25 14:38] LABS: Blood Urea Nitrogen 14 mg/dL (7-17)
--- NOTE | 2017-11-25 15:37 | CT ---
EXAMINATION TYPE: CT neck chest w con DATE OF EXAM: 11/25/2017 COMPARISON: NONE HISTORY: Right breast cancer-mastectomy CT DLP: 589.0 mGycm CONTRAST: CT scan of the neck is performed with IV Contrast, patient injected with 100 mL of Omnipaque 300. Contrast enhanced CT of the neck was performed from the skull base through the lung apices. AIRWAY: The supraglottic, glottic, and subglottic portions of the airway appear patent and free of mass. SALIVARY GLANDS: The submandibular and parotid glands are free of mass or inflammatory process. THYROID GLAND: Hypoattenuating nodule right thyroid lobe measuring 5.7 mm. No additional thyroid nodu les present. LYMPH NODES: No adenopathy seen greater than 1cm. LUNG APICES: No nodule or mass is seen. OTHER: Vascular structures are patent. No significant degenerative change of the cervical spine. N o abscess seen. IMPRESSION: 1. Right-sided thyroid nodule. Otherwise unremarkable study. EXAMINATION TYPE: CT neck chest w con DATE OF EXAM: 11/25/2017 COMPARISON: NONE HISTORY: Right breast cancer-mastectomy CT DLP: 589.0 mGycm Automated exposure control for dose reduction was used. CONTRAST: CT scan of the chest is performed with IV Contrast, patient injected with 100 mL of Omnipaque 300. FINDINGS: LUNGS: The lungs are grossly clear, there is no concerning parenchymal mass or nodule identified. T here is no pleural effusion or pneumothorax seen. The tracheobronchial tree is patent. MEDIASTINUM: There are no greater than 1 cm hilar or mediastinal lymph nodes. No pericardial effusi on is seen. Thoracic aorta is of normal caliber. The heart is not enlarged. UPPER ABDOMEN: No significant abnormality appreciated. OTHER: MediPort catheter is appropriately placed. Right-sided mastectomy changes noted. IMPRESSION: 1. No evidence for metastatic disease to the chest.
== END | disposition home or self-care (01) ==
LOC: RADPROMAIN 13:45
PROVIDERS: ATTEND Internal Medicine Hematology & Oncology
DX: C50.211 Malignant neoplasm of upper-inner quadrant of right female breast (principal); E04.1 Nontoxic single thyroid nodule
CPT/HCPCS: 82565; 84520; 36415; 70491; 71260; Q9967; J1642

== ENCOUNTER → 2018-06-23 | Outpatient (CLI) | payer BC ==
--- NOTE | 2018-06-23 15:06 | CT ---
EXAMINATION TYPE: CT ChestAbdPelvis w con, CT soft tissue neck w con DATE OF EXAM: 06/23/2018 COMPARISON: Prior CT neck and chest 11/25/2017 HISTORY: Breast CA/Thyroid nodule CT DLP: 1773.0 (accession [id number]), 265.9 (accession [id number]) mGycm Automated exposure control for dose reduction was used. CONTRAST: CT scan of the neck, chest, abdomen and pelvis is performed with Oral Contrast and with IV Contrast, patient injected with 70 (accession [id number]), 50 (accession [id number]) mL of Isovue 370. FINDINGS: CT of the neck shows no evident adenopathy. Port-A-Cath noted incidentally bilaterally left subclavian approach. Distal tip is within the superior vena cava. There is no evident adenopathy. Th ere is normal vascular enhancement. Hypodense focus persists in the right lobe of the thyroid. LUNGS: The lungs are grossly clear, there is no concerning parenchymal mass, question small 5 mm nodu le axial image 36 similar to prior exam, some dependent atelectatic changes present. There is no pl eural effusion or pneumothorax seen. The tracheobronchial tree is patent. MEDIASTINUM: There are no greater than 1 cm hilar or mediastinal lymph nodes. No pericardial effusi on is seen. AORTA: No significant abnormality is seen. OTHER: Patient is post right mastectomy and axillary node dissection.. LIVER/GB: No significant abnormality is appreciated. PANCREAS: No significant abnormality is seen. SPLEEN: No significant abnormality is seen. ADRENALS: No significant abnormality is seen. KIDNEYS: No significant abnormality is seen. REPRODUCTIVE ORGANS: No gross abnormality seen. BOWEL: No significant abnormality is seen. FREE AIR: No Free Air visible. ASCITES: None seen. RETROPERITONEAL ADENOPATHY: No retroperitoneal adenopathy is seen. LYMPH NODES: No greater than 1 cm abdominal or pelvic lymph nodes are appreciated. URINARY BLADDER: No significant abnormality is seen. PELVIC ADENOPATHY: None visualized. OSSEOUS STRUCTURES: No significant interval change is seen, degenerative disc change is noted within the spine. Question some mild heterogeneity in the density of the ribs. IMPRESSION: No significant interval change, stable exam, additional findings above.
== END | disposition home or self-care (01) ==
LOC: RADPROMAIN 09:59
PROVIDERS: ATTEND Internal Medicine Hematology & Oncology
DX: C50.211 Malignant neoplasm of upper-inner quadrant of right female breast (principal); J98.11 Atelectasis; Z90.11 Acquired absence of right breast and nipple; E07.89 Other specified disorders of thyroid; Z95.828 Presence of other vascular implants and grafts
CPT/HCPCS: 36415; 70491; 71260; 74177; J1642; Q9967

== ENCOUNTER → 2018-11-23 | Outpatient (CLI) | payer OTHER | END | disposition home or self-care (01) | LOC: LABWHC1 15:31 | PROVIDERS: ATTEND Physician Assistant | DX: Z53.9 Procedure and treatment not carried out, unspecified reason (principal) ==

== ENCOUNTER → 2018-11-25 | Outpatient (CLI) | payer OTHER ==
[2018-11-25 10:31] LABS: Basophils % (A) 0 %; Eosinophils # (A) 0.1 k/uL (0-0.7); Eosinophils % (A) 2 %; HCT 38.5 % (34.0-46.0); HGB 13.4 gm/dL (11.4-16.0); Lymphocytes # (A) 0.6 k/uL (1.0-4.8); Lymphocytes % (A) 16 %; MCH 33.8 pg (25.0-35.0); MCHC 34.8 g/dL (31.0-37.0); MCV 97.2 fL (80.0-100.0); Mean Platelet Volume 6.9; Monocytes # (A) 0.2 k/uL (0-1.0); Monocytes % (A) 6 %; Neutrophils # (A) 2.7 k/uL (1.3-7.7); Neutrophils % (A) 71 %; Platelet Count 163 k/uL (150-450); RBC 3.96 m/uL (3.80-5.40); WBC 3.7 k/uL (3.8-10.6)
[2018-11-25 17:47] LABS: Albumin 4.4 g/dL (3.80-4.90); Albumin/Globulin Ratio 2.59 (1.20-2.10); Anion Gap 6.6 mmol/L (4.00-12.00); Calcium 8.9 mg/dL (8.7-10.3); Carbon Dioxide 31.4 mmol/L (21.6-31.8); Globulin 1.7 g/dL (1.6-3.3); Potassium 4.1 mmol/L (3.5-5.5); Total Bilirubin 0.7 mg/dL (0.2-1.2); Total Protein 6.1 g/dL (6.2-8.2)
[2018-11-25 17:48] LABS: DHEA Sulfate 117.5 ug/dL (26.0-430.0)
== END ==
LOC: LABWHC1 09:58
PROVIDERS: ATTEND Physician Assistant
DX: C50.919 Malignant neoplasm of unspecified site of unspecified female breast (principal); E34.9 Endocrine disorder, unspecified; E83.00 Disorder of copper metabolism, unspecified; E55.9 Vitamin D deficiency, unspecified; E58 Dietary calcium deficiency; E59 Dietary selenium deficiency; E60 Dietary zinc deficiency; E61.1 Iron deficiency; E61.6 Vanadium deficiency; R53.83 Other fatigue
CPT/HCPCS: 36415; 80053; 82525; 82607; 82627; 82652; 83695; 83735; 84140; 84481; 84482; 84630; 85025

== ENCOUNTER → 2019-01-31 | Outpatient (CLI) | payer OTHER ==
--- NOTE | 2019-02-01 08:09 | CT ---
EXAMINATION TYPE: CT ChestAbdPelvis w con DATE OF EXAM: 01/31/2019 COMPARISON: CT chest abdomen and pelvis June 23, 2018 HISTORY: Abnormal lung nodule. Hx Rt side breast ca. Pt concerned with LT side lymph node by armpit. CT DLP: 1236 mGycm. Automated Exposure Control for Dose Reduction was Utilized. CONTRAST: CT scan of the thorax, abdomen and pelvis is performed with oral and with IV Contrast, patient inject ed with 100 mL of Isovue 300. FINDINGS: LUNGS: Dependent atelectasis bilateral lower lobes is present. Patchy reticulonodular infiltrates in periphery right middle lobe near axial image 39 are identified. No suspicious nodules or masses are i dentified on current study. No pleural effusion or pneumothorax is seen. MEDIASTINUM: There are no greater than 1 cm hilar or mediastinal lymph nodes. Stable small to tiny pe ricardial effusion is seen. No cardiomegaly is evident. OTHER: Right breast is surgically absent. Surgical clips right axillary region are redemonstrated. No suspicious left axillary adenopathy identified on this study. LIVER/GB: No significant abnormality is appreciated. PANCREAS: No significant abnormality is seen. SPLEEN: No significant abnormality is seen. ADRENALS: No significant abnormality is seen. KIDNEYS: No significant abnormality is seen. BOWEL: Oral contrast reaches proximal ileal level in the right lower quadrant. There is no suspicious small or large bowel dilatation. Patient has very little intra-abdominal fat. Fecal material is seen in nondistended colon. GENITAL ORGANS: Uterus is slightly retroverted inverted with peripheral calcifications and adjacent p hlebolith. LYMPH NODES: No greater than 1cm abdominal or pelvic lymph nodes are appreciated. OSSEOUS STRUCTURES: There is moderate disc space narrowing with vacuum disc phenomenon at lumbosacral junction. OTHER: No significant additional abnormality is seen. IMPRESSION: No suspicious new mass or adenopathy. Cannot rule out developing right middle lobe acute infiltrate, correlate clinically. Otherwise no significant interval change.
== END | disposition home or self-care (01) ==
LOC: RADCTMAIN 14:58
PROVIDERS: ATTEND Internal Medicine Hematology & Oncology
DX: Z03.89 Encounter for observation for other suspected diseases and conditions ruled out (principal); C50.211 Malignant neoplasm of upper-inner quadrant of right female breast; R91.1 Solitary pulmonary nodule
CPT/HCPCS: 71260; 74177; Q9967

== ENCOUNTER → 2019-07-25 | Outpatient (CLI) | payer OTHER ==
--- NOTE | 2019-07-25 14:02 | CT ---
EXAMINATION TYPE: CT ChestAbdPelvis w con DATE OF EXAM: 07/25/2019 COMPARISON: CT January 31, 2019 and older CTs HISTORY: Follow up breast cancer originally diagnosed 2016 , no complaints at time of scan CT DLP: 521.9 mGycm. Automated Exposure Control for Dose Reduction was Utilized. CONTRAST: CT scan of the thorax, abdomen and pelvis is performed with oral and with IV Contrast, patient inject ed with 100 mL of Isovue 300. FINDINGS: LUNGS: Mild right apical scarring. Dependent atelectasis in both lower lobes. Mild linear scarring an terior right upper lung axial image 24 redemonstrated. Mild linear scarring left lung base centrally axial image 45 redemonstrated. No new nodules or masses. No pleural effusion or pneumothorax. MEDIASTINUM: There are no greater than 1 cm hilar or mediastinal lymph nodes. No pericardial effusi on is seen. Heart size upper limits of normal fell stable. OTHER: Right breast surgically absent with right axillary surgical clips redemonstrated. LIVER/GB: No significant abnormality is appreciated. PANCREAS: Stable subcentimeter hypodense lesion mid to distal body of pancreas axial image 54 unchang ed back to August 20, 2017 CT and is thought thus presumed benign. SPLEEN: No significant abnormality is seen. ADRENALS: No significant abnormality is seen. KIDNEYS: No significant abnormality is seen. BOWEL: Oral contrast does not reach colonic level. No suspicious small or large bowel dilatation. Pro minence of fecal material throughout the colon is noted. Correlate for moderate diffuse colonic fecal stasis. GENITAL ORGANS: Peripheral calcifications in uterus redemonstrated. Tubal ligation clips are redemons trated. LYMPH NODES: No greater than 1cm abdominal or pelvic lymph nodes are appreciated. OSSEOUS STRUCTURES: Moderate disc space narrowing with vacuum disc phenomenon lumbosacral junction re demonstrated. OTHER: No significant additional abnormality is seen. IMPRESSION: No new mass or adenopathy to suggest metastatic malignant recurrence.
== END | disposition home or self-care (01) ==
LOC: RADCTMAIN 11:27
PROVIDERS: ATTEND Internal Medicine Hematology & Oncology
DX: C50.211 Malignant neoplasm of upper-inner quadrant of right female breast (principal); R91.1 Solitary pulmonary nodule
CPT/HCPCS: 71260; 74177; Q9967

== ENCOUNTER → 2019-10-19 | Outpatient (CLI) | payer OTHER | END | disposition home or self-care (01) | LOC: LABWHC1 07:48 | PROVIDERS: ATTEND Student in an Organized Health Care Education/Training Program | DX: C50.919 Malignant neoplasm of unspecified site of unspecified female breast (principal) | CPT/HCPCS: 36415; 86300 ==

== ENCOUNTER → 2020-01-23 | Outpatient (CLI) | payer BC ==
--- NOTE | 2020-01-23 11:21 | CT ---
EXAMINATION TYPE: CT ChestAbdPelvis w con DATE OF EXAM: 01/23/2020 COMPARISON: 07/25/2019 HISTORY: Breast CA, Observe for mets. Personal history of right mastectomy and lymph node resection. Prophylactic left mastectomy was also performed. History of appendectomy, , tubal ligation a nd Mediport insertion. Last chemotherapy and radiation in 2018. CT DLP: 529.7 mGycm. Automated Exposure Control for Dose Reduction was Utilized. CONTRAST: CT scan of the thorax, abdomen and pelvis is performed with IV Contrast, patient injected with 100 mL of Isovue 300. FINDINGS: LUNGS: Mild right apical pleural parenchymal scarring again seen. Multifocal pleural parenchymal scar ring in the right middle lobe and lung bases. Pleural thickening is likely reactive due to atelectasi s in the lower lobes on series 4 image 32 dependently. There are 2 adjacent 2 x 2 mm groundglass pulm onary nodules in the peripheral left upper lobe on series 4 image 20 that were not present on the cari or exam. Infectious or inflammatory etiology are suspected and short-term follow-up CT thorax is arturo mmended in 3 months to assess for resolution. No additional suspicious new pulmonary nodules are seen . There is no pleural effusion or pneumothorax seen. The tracheobronchial tree is patent. MEDIASTINUM: There are no greater than 1 cm hilar or mediastinal lymph nodes. No pericardial effusi on is seen. OTHER: Bilateral mastectomy has been performed with right axillary lymph node dissection. Subcentimet er right thyroid nodule is too small to characterize. LIVER/GB: Hepatic parenchyma is diffusely hypoattenuated in comparison to that of the spleen, most co mmonly seen in hepatic steatosis. This finding limits evaluation for hepatic masses. No gross evidenc e of hepatic mass is seen. No intrahepatic biliary ductal dilatation. No cholelithiasis. PANCREAS: There is continued stability of an approximately 4 mm hypoattenuated lesion in the mid to d istal body of the pancreas on image 55 in comparison to multiple exams dating back to August 20, 2017 , therefore likely benign. SPLEEN: No significant abnormality is seen. And no spinal megaly. ADRENALS: No new nodule or thickening. KIDNEYS: Today's enhance and excrete symmetrically without hydronephrosis. BOWEL: Moderate to severe colonic fecal stasis, limiting evaluation of the bowel. No dilated large or small bowel seen. Oral contrast progresses to the transverse colon only. GENITAL ORGANS: No gross abnormality seen. Tubal ligation clips are present. LYMPH NODES: No greater than 1cm abdominal or pelvic lymph nodes are appreciated. OSSEOUS STRUCTURES: Degenerative changes of the pubic symphysis and left sacroiliac joint as well as of the spine that are all mild in degree. No new suspicious destructive osseous lesion seen. OTHER: Moderate atherosclerosis of the abdominal aorta and its branches. Injection granuloma on the l eft gluteal soft tissues. IMPRESSION: 1. Two adjacent 2 x 2 mm groundglass left upper lobe pulmonary nodules that are suspected to be infla mmatory or infectious in etiology. Short-term follow-up CT thorax in 3 months is recommended to ensu re resolution. 2. No new adenopathy in the chest, abdomen, or pelvis. No new findings to suspect visceral metastasis in the chest, abdomen, or pelvis. 3. Hepatic steatosis.
== END | disposition home or self-care (01) ==
LOC: RADCTMAIN 08:13
PROVIDERS: ATTEND Internal Medicine Hematology & Oncology
DX: Z03.89 Encounter for observation for other suspected diseases and conditions ruled out (principal); C50.211 Malignant neoplasm of upper-inner quadrant of right female breast; K76.0 Fatty (change of) liver, not elsewhere classified; R91.8 Other nonspecific abnormal finding of lung field
CPT/HCPCS: 71260; 74177; Q9967 ×2

== ENCOUNTER → 2020-06-21 | Outpatient (CLI) | payer BC ==
[2020-06-21 09:36] LABS: T4, Free (Free Thyroxine) 0.82 ng/dL (0.78-2.19)
[2020-06-21 10:19] LABS: Ionized Calcium 4.9 mg/dL (4.5-5.3)
[2020-06-21 15:17] LABS: Thyroid Peroxidase Antibodies 50.3 U/mL (0.0-60.0)
[2020-06-21 15:19] LABS: DHEA Sulfate 78.9 ug/dL (26.0-430.0)
[2020-06-21 15:33] LABS: % Iron Saturation 17.93 (12.00-45.00); C Reactive Protein, High Sens 0.95 mg/L (0.000-3.000)
[2020-06-21 15:42] LABS: Ferritin 55.9 ng/mL (10.0-291.0)
[2020-06-25 06:17] LABS: Vitamin A 55 ug/dL (38-106)
== END | disposition home or self-care (01) ==
LOC: LABWHC1 08:12
PROVIDERS: ATTEND Physician Assistant
DX: Z00.00 Encounter for general adult medical examination without abnormal findings (principal); R53.83 Other fatigue; E55.9 Vitamin D deficiency, unspecified; E34.9 Endocrine disorder, unspecified; E03.9 Hypothyroidism, unspecified; E56.9 Vitamin deficiency, unspecified; K90.9 Intestinal malabsorption, unspecified
CPT/HCPCS: 36415; 82180; 82306; 82330; 82525; 82607; 82627; 82728; 83090; 83540; 83550; 83735; 83970; 84140; 84207; 84425; 84439; 84481; 84482; 84590; 84630; 86141; 86376; 86800

== ENCOUNTER → 2020-08-20 | Outpatient (CLI) | payer BC ==
[2020-08-20 09:40] LABS: African American GFR (CKD) >90 (>60 ml/min/1.73 sqM); Blood Urea Nitrogen 13 mg/dL (7-17); Non-African American GFR(CKD) >90 (>60 ml/min/1.73 sqM)
--- NOTE | 2020-08-20 12:14 | CT ---
EXAMINATION TYPE: CT chest w con DATE OF EXAM: 08/20/2020 COMPARISON: 01/23/2020 HISTORY: Breast CA CT DLP: 186 mGycm, Automated exposure control for dose reduction was used. CONTRAST: Performed injected with 100 mL of Isovue 300. TECHNIQUE: Axial images were obtained at 5 mm thick sections. Reconstructed images are reviewed on [employer] computer in the coronal plane. FINDINGS: Portion of the thyroid visualized is normal. No suspicious lung nodules or focal infiltrates are present. Previous areas of pneumonitis and nodular change in the posterior lateral left upper lobe have resolv ed. No enlarged mediastinal or hilar adenopathy is evident. The ascending aorta diameter at the level o f the main pulmonary artery is 2.8 cm. The main pulmonary artery diameter at the bifurcation is 2.[address] sections are obtained through the upper abdomen. Abdomen is essentially unremarkable. IMPRESSIONS: 1. Normal CT chest. 2. Resolution previous areas of pneumonitis
== END | disposition home or self-care (01) ==
LOC: RADCTMAIN 09:00
PROVIDERS: ATTEND Internal Medicine Hematology & Oncology
DX: C50.211 Malignant neoplasm of upper-inner quadrant of right female breast (principal)
CPT/HCPCS: 82565; 84520; 71260; 36415; Q9967

== ENCOUNTER → 2021-08-15 | Outpatient (CLI) | payer BC ==
[2021-08-15 09:33] LABS: ALT 45 U/L (4-34); AST 43 U/L (14-36); African American GFR (CKD) >90 (>60 ml/min/1.73 sqM); Albumin 4.6 g/dL (3.5-5.0); Alkaline Phosphatase 73 U/L (38-126); Anion Gap 5 mmol/L; Blood Urea Nitrogen 12 mg/dL (7-17); Calcium 9.6 mg/dL (8.4-10.2); Carbon Dioxide 29 mmol/L (22-30); Chloride 101 mmol/L (98-107); Glucose 89 mg/dL (74-99); Non-African American GFR(CKD) >90 (>60 ml/min/1.73 sqM); Potassium 4.3 mmol/L (3.5-5.1); Sodium 135 mmol/L (137-145); Total Protein 7.2 g/dL (6.3-8.2)
--- NOTE | 2021-08-15 10:42 | CT ---
EXAMINATION TYPE: CT chest w con DATE OF EXAM: 08/15/2021 COMPARISON: Chest CT August 20, 2020 and older CTs HISTORY: Breast CA, Lung Nodule CT DLP: 145.7 mGycm. Automated Exposure Control for Dose Reduction was Utilized. TECHNIQUE: CT scan of the thorax is performed following with IV Contrast, patient injected with 100 mL of Isovue 300. FINDINGS: LUNGS: Mild right apical scarring redemonstrated. Mild linear scarring anterior right upper lung axia l image 22 with redemonstrated. Mild linear scarring left lung base centrally axial image 46 is redem onstrated. Some reticulation and fibrotic change along the periphery of the right middle lobe is rede monstrated No new greater than 5 mm nodules or masses. No pleural effusion or pneumothorax. MEDIASTINUM: There are no new greater than 1 cm hilar or mediastinal lymph nodes. No pericardial ef fusion is seen. Heart size upper limits of normal fell stable. Bovine type aortic arch which is normal variant is redemonstrated. OTHER: Right breast surgically absent with right axillary surgical clips redemonstrated. Left breast also surgically absent. IMPRESSION: No new or enlarging greater than 5 mm nodules or masses.
[2021-08-15 11:06] LABS: Appearance,Urine Clear (Clear); Bilirubin,Urine Negative (Negative); Blood,Urine Negative (Negative); Color,Urine Light Yellow; Glucose,Urine (UA) Negative (Negative); Ketones,Urine Negative (Negative); Leukocyte Esterase,Urine Negative (Negative); Nitrite,Urine Negative (Negative); PH, Urine 6.5 (5.0-8.0); Protein,Urine Negative (Negative); Specific Gravity,Urine 1.006 (1.001-1.035); Urobilinogen,Urine <2.0 mg/dL (<2.0)
[2021-08-15 11:21] LABS: Basophils % (A) 0 %; Eosinophils # (A) 0.1 k/uL (0-0.7); Eosinophils % (A) 1 %; HCT 40.5 % (34.0-46.0); HGB 13.7 gm/dL (11.4-16.0); Lymphocytes # (A) 1.1 k/uL (1.0-4.8); Lymphocytes % (A) 30 %; MCH 33.2 pg (25.0-35.0); MCHC 33.9 g/dL (31.0-37.0); MCV 98.2 fL (80.0-100.0); Mean Platelet Volume 8.8; Monocytes # (A) 0.3 k/uL (0-1.0); Monocytes % (A) 8 %; Neutrophils # (A) 2.2 k/uL (1.3-7.7); Neutrophils % (A) 58 %; Platelet Count 177 k/uL (150-450); RBC 4.13 m/uL (3.80-5.40); RDW 12.6 % (11.5-15.5); WBC 3.8 k/uL (3.8-10.6)
[2021-08-15 12:32] LABS: T4, Free (Free Thyroxine) 1.23 ng/dL (0.78-2.19)
[2021-08-16 11:24] LABS: LDL Cholesterol,Calculated 200.1 mg/dL (0.0-131.0)
[2021-08-16 17:07] LABS: Thyroid Peroxidase Antibodies <9.0 U/mL (0.0-33.0)
[2021-08-16 19:51] LABS: Chol/HDL Ratio 4.96 Ratio; Iron 104 ug/dL (50-170); Total Iron Binding Capacity 414 ug/dL (228-460)
== END | disposition home or self-care (01) ==
LOC: RADCTMAIN 08:17
PROVIDERS: ATTEND Internal Medicine Hematology & Oncology
DX: C50.211 Malignant neoplasm of upper-inner quadrant of right female breast (principal); R91.1 Solitary pulmonary nodule
CPT/HCPCS: 84140; 84439; 84481; 80061; 80053; 86300; 82626; 82607; 82728; 82525; 83540; 83550; 83735; 84443; 84590; 84630; 85025; 86141; 81003; 83090; 83525; 86800; 86376; 82306; 83970; 84482; 83036; 71260; 36415; Q9967

== ENCOUNTER → 2022-04-07 | Outpatient (CLI) | payer BC ==
--- NOTE | 2022-04-07 12:50 | CT ---
EXAMINATION TYPE: CT chest w con DATE OF EXAM: 04/07/2022 COMPARISON: CT dated 08/15/2021 HISTORY: f/u breast ca CT DLP: 174.9 mGycm Automated exposure control for dose reduction was used. TECHNIQUE: CT scan of the chest is performed with IV Contrast, patient injected with 100 mL of Isovue 300. FINDINGS: LUNGS: Left basal posterior linear pulmonary atelectasis. Right apical pulmonary fibrotic changes/sca rring and groundglass opacity, stable. Peripheral reticulations and minimal fibrotic changes seen at the anterior aspect of the middle lobe, appreciated previously. Patent trachea and main bronchi. No p leural effusion. MEDIASTINUM: Suspected biatrial dilatation. Minimal pericardial fluid. Patent major mediastinal vesse ls. No pathologically enlarged lymph nodes in the chest. OTHER: Previous bilateral mastectomy. 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 No gross aggressive bone lesion. IMPRESSION: No new suspicious or progressive pulmonary lesion. No thoracic lymphadenopathy. Incidental findings a s described above.
== END | disposition home or self-care (01) ==
LOC: RADCTMAIN 08:41
PROVIDERS: ATTEND Internal Medicine Hematology & Oncology
DX: Z03.89 Encounter for observation for other suspected diseases and conditions ruled out (principal); C50.211 Malignant neoplasm of upper-inner quadrant of right female breast
CPT/HCPCS: 71260; Q9967

== ENCOUNTER → 2022-07-16 | Outpatient (CLI) | payer BC ==
[2022-07-16 09:27] LABS: Appearance,Urine Clear (Clear); Bilirubin,Urine Negative (Negative); Blood,Urine Negative (Negative); Color,Urine Yellow; Glucose,Urine (UA) Negative (Negative); Ketones,Urine Negative (Negative); Leukocyte Esterase,Urine Moderate (Negative); Mucus,Urine Rare /hpf; Nitrite,Urine Negative (Negative); PH, Urine 6.5 (5.0-8.0); Protein,Urine Negative (Negative); RBC,Urine 7 /hpf (0-5); Specific Gravity,Urine 1.013 (1.001-1.035); Squamous Epithelial Cell,Urine 1 /hpf (0-4); Urobilinogen,Urine <2.0 mg/dL (<2.0); WBC,Urine 1 /hpf (0-5)
[2022-07-16 16:13] LABS: C Reactive Protein, High Sens 1.11 mg/L (0.000-3.000); Follicle Stimulating Hormone 64.1 mIU/mL; Luteinizing Hormone 40.5 mIU/mL
[2022-07-16 16:14] LABS: T4, Free (Free Thyroxine) 1.03 ng/dL (0.800-1.800)
[2022-07-16 16:31] LABS: Thyroid Peroxidase Antibodies <9.0 U/mL (0.0-33.0)
[2022-07-16 16:34] LABS: Ceruloplasmin 23.8 mg/dL (20.0-60.0); Immunoglobulin M 82.9 mg/dL (40.0-280.0)
[2022-07-16 16:44] LABS: % Iron Saturation 23.74 (12.00-45.00); African American GFR (CKD) 111.8 (60.0-200.0); Albumin 4.7 g/dL (3.8-4.9); Albumin/Globulin Ratio 2.19 (1.60-3.17); Anion Gap 13.6 mmol/L (10.00-18.00); BUN/Creat Ratio 20.46 Ratio (12.00-20.00); Blood Urea Nitrogen 12.5 mg/dL (9.0-27.0); Calcium 9.4 mg/dL (8.7-10.3); Globulin 2.1 g/dL (1.6-3.3); Non-African American GFR(CKD) 96.4 (60.0-200.0); Phosphorus 3.6 mg/dL (2.4-5.1); Potassium 3.9 mmol/L (3.5-5.5); Total Bilirubin 1.1 mg/dL (0.30-1.20); Total Protein 6.8 g/dL (6.2-8.2)
[2022-07-16 18:06] LABS: Basophils # (A) 0.03 X 10*3/uL (0.00-0.10); Eosinophils # (A) 0.04 X 10*3/uL (0.04-0.35); Eosinophils % (A) 1.3 %; HCT 38.4 % (37.2-46.3); HGB 13.1 g/dL (12.0-15.0); Immature Grans, Automated 0 %; Lymphocytes # (A) 1.05 X 10*3/uL (0.90-5.00); Lymphocytes % (A) 34.2 %; MCH 32.3 pg (27.0-32.0); MCHC 34.1 g/dL (32.0-37.0); MCV 94.8 fL (80.0-97.0); Mean Platelet Volume 10.7 fL (9.5-12.2); NRBC Per 100 WBC 0 /100 WBCS (0.0-0.0); Neutrophils # (A) 1.55 X 10*3/uL (1.80-7.70); Neutrophils % (A) 50.5 %; Platelet Count 167 X 10*3/uL (140-440); RBC 4.05 X 10*6/uL (4.10-5.20); RDW 12.5 % (11.5-14.5); WBC 3.07 X 10*3/uL (4.50-10.00)
[2022-07-16 19:19] LABS: Immunoglobulin E 0.36 IU/mL (0.00-114.00)
[2022-07-16 19:31] LABS: Gliadin AB IgG, Deaminated NEGATIVE (NEGATIVE); Gliadin AB IgG, Unit <0.4 U/mL
[2022-07-16 20:33] LABS: Gliadin AB IgA, Deaminated NEGATIVE (NEGATIVE); Gliadin AB IgA, Unit 9.6 U/mL
[2022-07-17 14:11] LABS: Casein IgE Class CLASS 0
== END | disposition home or self-care (01) ==
LOC: LABWHC1 07:21
PROVIDERS: ATTEND Emergency Medicine Emergency Medical Services
DX: R73.09 Other abnormal glucose (principal); R68.89 Other general symptoms and signs; D89.82 Autoimmune lymphoproliferative syndrome [ALPS]; C50.919 Malignant neoplasm of unspecified site of unspecified female breast; R53.83 Other fatigue; E34.9 Endocrine disorder, unspecified; E03.9 Hypothyroidism, unspecified; N95.1 Menopausal and female climacteric states; E88.9 Metabolic disorder, unspecified; E55.9 Vitamin D deficiency, unspecified; K90.9 Intestinal malabsorption, unspecified
CPT/HCPCS: 36415; 80053; 81001; 82180; 82306; 82390; 82525; 82607; 82626; 82728; 82784; 82785; 82955; 83001; 83002; 83036; 83090; 83516; 83540; 83550; 83615; 83695; 83735; 83970; 84100; 84140; 84144; 84270; 84305; 84425; 84432; 84439; 84443; 84481; 84482; 84550; 84590; 84630; 85025; 85384; 86001; 86003; 86141; 86376

== ENCOUNTER → 2022-08-07 | Outpatient (CLI) | payer BC | END | disposition home or self-care (01) | LOC: LABWHC1 07:50 | PROVIDERS: ATTEND Emergency Medicine Emergency Medical Services | DX: N95.1 Menopausal and female climacteric states (principal) | CPT/HCPCS: 36415; 82378; 86300 ==

== ENCOUNTER → 2023-02-23 | Outpatient (CLI) | payer BC ==
--- NOTE | 2023-02-23 15:26 | CT ---
EXAMINATION TYPE: CT ChestAbdPelvis w con DATE OF EXAM: 02/23/2023 COMPARISON: 04/07/2022 HISTORY: Hx of rt side breast CA. Double mastectomy done. CT DLP: 1474 mGycm CONTRAST: CT scan of the chest, abdomen and pelvis is performed with Oral Contrast and with IV Contrast, patien t injected with 100cc mL of Isovue 300. CT Chest: LUNGS: The lungs are clear and free of infiltrate or atelectasis. No pulmonary nodule or mass is det ected. No pleural effusion or CT evidence of interstitial lung disease. MEDIASTINUM: Thoracic aorta is of normal caliber. The heart is not enlarged. No evidence for media stinal mass or adenopathy. HILAR STRUCTURES: No evidence for mass. No hilar adenopathy is appreciated. OTHER: Double mastectomy changes noted. CONTRAST CT ABDOMEN AND PELVIS FINDINGS: LIVER/GB: No calcified gallstones. No space occupying hepatic lesion. Biliary tree is of normal ca liber. PANCREAS: No inflammation. No distinct mass. SPLEEN: No splenic enlargement. No lesion seen. ADRENALS: No nodule. No thickening. KIDNEYS/BLADDER: No hydronephrosis. No nephrolithiasis. No distinct renal mass. BOWEL: Normal appendix. Normal bowel caliber. No inflammation. GENITAL ORGANS: Uterine calcifications seen. LYMPH NODES: No greater than 1cm abdominal or pelvic lymph nodes are appreciated. AORTA: No significant abnormality. OSSEOUS STRUCTURES: No significant abnormality is seen. OTHER: No significant additional abnormality is seen. IMPRESSION: 1. No evidence for metastatic disease to the chest abdomen or pelvis
== END | disposition home or self-care (01) ==
LOC: RADCTMAIN 12:50
PROVIDERS: ATTEND Internal Medicine Hematology & Oncology
DX: C50.211 Malignant neoplasm of upper-inner quadrant of right female breast (principal); Z90.13 Acquired absence of bilateral breasts and nipples
CPT/HCPCS: 71260; 74177; Q9967

== ENCOUNTER → 2024-01-21 | Day surgery (SDC) | payer BC, MEDICARE ==
[~2024-01-21] MED LIST changes: -DEXAMETHASONE SOD PHOSPHATE 10 MG/ML 1 ML VIAL IV ONE; -HYDROmorphone 1 MG/ML 1 ML SYRINGE IVP PRN; -LACTATED RINGERS 1,000 ML IV SCH; +LIDOCAINE 1% (10MG/ML) FOR IV START INTRADERMA PRN; +PROPOFOL 10 MG/ML 20 ML VIAL IV ONE; -Pre Op ABX Message 1 EACH MISC MISCELLANE ONE
[2024-01-21 13:29] VITALS: RESP 16; TEMP 97.8
[2024-01-21] MEDS: LACTATED RINGERS 1,000 ML IV SCH (13:40)
--- NOTE | 2024-01-21 14:44 | P.PCN ---
Date of Procedure: 01/21/24 Procedure(s) Performed: BRIEF HISTORY: Patient is a 63-year-old pleasant white female scheduled for an elective colonoscopy as a part of screening for colon cancer PROCEDURE PERFORMED: Colonoscopy. PREOPERATIVE DIAGNOSIS:Screening for colon cancer]. IV sedation per Anesthesia. PROCEDURE: After informed consent was obtained, the patient, was brought into the endoscopy unit. IV sedation was administered by Anesthesia under continuous monitoring. Digital rectal examination was normal. Initially the Olympus CF-160 flexible video colonoscope was then inserted in the rectum, gradually advanced into the cecum without any difficulty. Careful examination was performed as the scope was gradually being withdrawn. Ileocecal valve and the appendiceal orifice were visualized and appeared normal. Prep was excellent. Mucosa of the cecum, ascending colon, transverse colon, descending colon, sigmoid colon, and rectum appeared normal. Retroflexion was performed in the rectum and no lesions were seen. The patient tolerated the procedure well. IMPRESSION: Normal-appearing colon from rectum to cecum no evidence of colorectal neoplasia . RECOMMENDATIONS: Findings of this examination were discussed with the patient is a family. She was advised to have a repeat screening colonoscopy in 10 years.
[2024-01-21 15:08] VITALS: BP 128/62; PULSE 57
== END ==
LOC: ORWHC2ENDO 12:14
PROVIDERS: ATTEND Internal Medicine Gastroenterology
DX: Z12.11 Encounter for screening for malignant neoplasm of colon (principal); E07.9 Disorder of thyroid, unspecified; Z88.2 Allergy status to sulfonamides; Z88.6 Allergy status to analgesic agent; Z85.3 Personal history of malignant neoplasm of breast; Z79.890 Hormone replacement therapy; Z79.899 Other long term (current) drug therapy
CPT/HCPCS: G0121; J2704

== ENCOUNTER → 2024-10-05 | Outpatient (CLI) | payer MEDICARE ==
[2024-10-05 16:04] LABS: T4, Free (Free Thyroxine) 1.13 ng/dL (0.80-1.80)
== END | disposition home or self-care (01) ==
LOC: LABWHC1 09:36
PROVIDERS: ATTEND Family Medicine
DX: E03.9 Hypothyroidism, unspecified (principal); E27.40 Unspecified adrenocortical insufficiency; E56.9 Vitamin deficiency, unspecified
CPT/HCPCS: 36415; 82306; 84439; 84443; 84481

== ENCOUNTER → 2024-10-11 | Outpatient (CLI) | payer MEDICARE | END | disposition home or self-care (01) | LOC: LABWHC1 07:28 | PROVIDERS: ATTEND Family Medicine | DX: E03.9 Hypothyroidism, unspecified (principal); E27.40 Unspecified adrenocortical insufficiency; E56.9 Vitamin deficiency, unspecified | CPT/HCPCS: 36415; 82626 ==